=== PATIENT | female | born 1945 | race Caucasian/White ===

== ENCOUNTER 2020-05-16 07:25 | Day surgery (SDC) | payer MEDICARE, OTHER ==
[~2020-05-16] VITALS: Ht 154.9 cm; Wt 66.2 kg
[~2020-05-16 07:25] MED LIST: ALENDRONATE SOD70 MG PO; MEMANTINE HCL10 MG PO
--- NOTE | 2020-05-16 09:54 | NUR ---
05/16/20 0954 Ana Viera 0949- PT ARRIVES TO PACU ALERT. PT REPORTS NO PAIN OR NAUSEA. RESP EVEN AND UNLABORED. OXYGEN SAT HIGH 90'S TO 100% ON 3L VIA NC. 0954- OXYGEN TITRATED OFF.
--- NOTE | 2020-05-17 13:36 | PATH ---
[facility] [address] [facility] [address] [place], [place] [address] Signed SPECIMEN(S): A SPLENIC FLEXURE POLYP SPECIMEN(S): B CECAL POLYPS SPECIMEN(S): C HEPATIC FLEXURE POLYP SPECIMEN(S): D TRANSVERSE POLYP SPECIMEN(S): E SPLENIC FLEXURE POLYP SPECIMEN(S): F SIGMOID POLYP AT 25 CM SPECIMEN(S): G SIGMOID POLYP AT 20 CM SPECIMEN(S): H RECTAL POLYP AT 16 CM SPECIMEN(S): I RECTAL POLYP SPECIMEN SOURCE: A. SPLENIC FLEXURE POLYP B. CECAL POLYPS C. HEPATIC FLEXURE POLYP D. TRANSVERSE POLYP E. SPLENIC FLEXURE POLYP F. SIGMOID POLYP AT 25 CM G. SIGMOID POLYP AT 20 CM H. RECTAL POLYP AT 16 CM I. RECTAL POLYP CLINICAL HISTORY: Colon screening. Postop Diagnosis: Multiple colon polyps. MICROSCOPIC DESCRIPTION: Histologic sections of all submitted blocks are examined by light microscopy. These findings, together with the gross examination, support the pathologic diagnosis. FINAL PATHOLOGIC DIAGNOSIS: A. Splenic flexure polyp, biopsy: - Tubular adenoma (one fragment). B. Cecal polyps, biopsy: - Tubular adenoma (one fragment). C. Hepatic flexure polyp, biopsy: - Tubular adenoma (two fragments). D. Transverse polyp, biopsy: - Tubular adenoma (multiple fragments). E. Splenic flexure polyp, biopsy: - Tubular adenoma (one fragment). F. Sigmoid polyp at 25 cm, biopsy: - Tubular adenoma (multiple fragments). PATIENT NAME: DORCAS PUGH PATHOLOGY DATE OF : 43 REPORT #: [id number] PHYSICIAN: PAUL PATHOLOGY PCP: CHERIE MARCELO PA-C REPORT IS CONFIDENTIAL AND NOT TO BE RELEASED WITHOUT AUTHORIZATION [facility] [address] [place], [place] [address] Signed G. Sigmoid polyp at 20 cm, biopsy: - Tubular adenoma (one fragment). H. Rectal polyp at 16 cm, biopsy: - Tubular adenoma (one fragment). I. Rectal polyp, (low), biopsy: - Tubular adenoma (one fragment). JVR:[id number] GROSS DESCRIPTION: Nine specimens are received in nine containers, labeled "NJ." A. The specimen, labeled "NJ, 1," and designated on the requisition "splenic polyp," is received in formalin and consists of one merino soft tissue fragment that measures 0.3 cm in greatest dimension. The specimen is entirely submitted in cassette (A1). B. The specimen, labeled "NJ, 2," and designated on the requisition "cecal polyps x 2," is received in formalin and consists of two merino soft tissue fragments that measure 0.3 cm in greatest dimension. The specimen is entirely submitted in cassette (B1). C. The specimen, labeled "NJ, 3," and designated on the requisition "hepatic flexure polyp," is received in formalin and consists of two merino soft tissue fragments that measure 0.4 cm in greatest dimension. The specimen is entirely submitted in cassette (C1). D. The specimen, labeled "NJ, 4," and designated on the requisition "transverse polyps," is received in formalin and consists of multiple merino soft tissue fragments that measure 1.6 x 1.3 x 0.4 cm in aggregate. The specimen is entirely submitted in cassette (D1). E. The specimen, labeled "NJ, 5," and designated on the requisition "splenic colon polyp #2," is received in formalin and consists of two merino soft tissue fragments that measure 0.4 cm in greatest dimension. The specimen is entirely submitted in cassette (E1). F. The specimen, labeled "NJ, 6," and designated on the requisition "sigmoid polyp at 25 cm," is received in formalin and consists of two merino soft tissue fragments that measure 0.8 cm in greatest dimension. The larger polypoid specimen is inked black and bisected; the specimen is entirely submitted in cassette (F1). G. The specimen, labeled "NJ, 7," and designated on the requisition "sigmoid polyp at 20 cm," is received in formalin and consists of one merino soft tissue fragment that measures 0.6 cm in greatest dimension. The specimen is inked black, bisected, and entirely submitted in cassette (G1). PATIENT NAME: DORCAS PUGH PATHOLOGY DATE OF : 43 REPORT #: [id number] PHYSICIAN: PAUL MURRELL PCP: CHERIE MARCELO PA-C REPORT IS CONFIDENTIAL AND NOT TO BE RELEASED WITHOUT AUTHORIZATION [facility] [address] [place] [id number] Signed H. The specimen, labeled "NJ, 8," and designated on the requisition "rectal polyp at 16 cm," is received in formalin and consists of two merino soft tissue fragments that measure 0.3 cm in greatest dimension. The specimen is entirely submitted in cassette (H1). I. The specimen, labeled "NJ, 9," and designated on the requisition "rectal polyp (low)," is received in formalin and consists of one merino soft tissue fragment that measures 0.6 cm in greatest dimension. The specimen is inked black, bisected, and entirely submitted in cassette (I1). AT (under the direct supervision of a pathologist) The Gross Description was prepared using a voice recognition system. The report was reviewed for accuracy; however, sound-alike word errors, addition and/or deletions may occur. If there is any question about this report, please contact Client Services. PERFORMING LABORATORY: The technical component was performed by [facility], [address] [place] [address] (Cardiovascular Lab Director: Amber Cherry MD; CLIA# [id number]). Professional interpretation [place] [address] (Cardiovascular Lab Director: Christiano Garcia M.D.). Diagnostician: Christiano Garcia MD Pathologist Electronically Signed 05/17/2020 Copies: ~ PATIENT NAME: DORCAS PUGH PATHOLOGY DATE OF : 43 REPORT #: [id number] PHYSICIAN: PAUL MURRELL PCP: CHERIE MARCELO PA-C REPORT IS CONFIDENTIAL AND NOT TO BE RELEASED WITHOUT AUTHORIZATION
--- NOTE | 2020-05-18 12:08 | OR ---
[facility] [address] [place], [place] [address] Signed DATE OF OPERATION: 05/16/2020 SURGEON: Chao Morfin MD PREOPERATIVE DIAGNOSES: 1. Colon screening. 2. Dementia. POSTOPERATIVE DIAGNOSIS: Multiple polyps (9 excised) PROCEDURE: Total colonoscopy to cecum with hot snare polypectomy x4, mucosal lift, polypectomy x1, cold snare x1 and cold morcellation x3. ANESTHESIA: Intravenous sedation, fentanyl 100 mcg and Versed 5 mg. INDICATION: A 74-year-old white woman with dementia, the patient of Susan Warner and is uncertain if she has had colonoscopy in the past. She has some constipation and no other symptoms of bleeding, etc. Her family history is uncertain. She was advised and referred for colonoscopy with two no-show appointments in 2019. It is uncertain if she has had colonoscopy in the past. She is admitted at this time to undergo colonoscopy. She understands the risks of bleeding, infection, perforation. FINDINGS: The prep was excellent. Complete colonoscopy was undertaken to the cecum. She had multiple polyps as previously noted. All were excised with combination of techniques. We will recommend repeat colonoscopy in one year given the number of polyps. DESCRIPTION OF PROCEDURE: The patient was brought to the endoscopy suite and placed in lateral decubitus position, given intravenous sedation to the point of slurred speech and nystagmus. Digital rectal examination was normal. An Olympus video colonoscope was passed in the rectum and manipulated throughout the colon noting several polyps along the way. The 1st polyp excised was at the splenic flexure with cold morcellation technique given its position. The scope was ultimately advanced to the cecum. There were two small polyps, they were both excised with cold Electronically Signed By: CHAO MORFIN MD 05/18/20 1208 PATIENT NAME: DORCAS PUGH OPERATIVE REPORT DATE OF : 43 REPORT #: [id number] PHYSICIAN: CHAO MORFIN MD PCP: SUSAN WARNER PA-C REPORT IS CONFIDENTIAL AND NOT TO BE RELEASED WITHOUT AUTHORIZATION [facility] [address] [place], [place] [address] Signed morcellation technique. Withdrawal of the scope to the area of the hepatic flexure showed a somewhat larger sessile polyp, this was excised with cold snare technique. Further withdrawal to the proximal transverse colon showed a mucosal thickening and a flat polyp. Narrow band imaging confirmed this. Using mucosal lift technique with injection of Spot endoscopic tattoo material, the mucosa was lifted and using hot snare polypectomy technique, the lesion was completely excised. Photographs were taken of course in all these areas. Further withdrawal of scope showed another small polyp at the splenic flexure and was excised with cold technique. Withdrawal to the sigmoid showed two sessile polyps less than a cm in size, both excised with hot snare polypectomy technique and the proximal rectum at about 16 cm, cold morcellation of another small polyp and retroflexed view confirmed a somewhat larger less than a cm polyp, which was excised with hot snare polypectomy technique. All specimens were passed to pathology and appropriately labeled. The scope was removed and the patient was taken to the recovery room in good condition. CONCLUDING DIAGNOSIS: Multiple polyps. PLAN: Recommend a repeat colonoscopy in one year given number of polyps. She will return to the ongoing care of KANNAN Goins. Chao Morfin MD JM/MODL /[id number] cc: Susan Warner PA-C Copies: SUSAN WARNER PA-C ~ Electronically Signed By: CHAO MORFIN MD 05/18/20 1208 PATIENT NAME: DORCAS PUGH OPERATIVE REPORT DATE OF : 43 REPORT #: [id number] PHYSICIAN: CHAO MORFIN MD PCP: SUSAN WARNER PA-C REPORT IS CONFIDENTIAL AND NOT TO BE RELEASED WITHOUT AUTHORIZATION
== END 2020-05-16 10:30 | disposition home or self-care (01) ==
LOC: DS 07:25 → OPS 07:25 → DS 08:30 → OPS 08:30
PROVIDERS: ATTEND Surgery
PROC: 0DBL8ZX Excision of Transverse Colon, Via Natural or Artificial Opening Endoscopic, Diagnostic (ICD-10-PCS; 2020-05-16)
PROC: 0DBN8ZX Excision of Sigmoid Colon, Via Natural or Artificial Opening Endoscopic, Diagnostic (ICD-10-PCS; 2020-05-16)
PROC: 0DBP8ZX Excision of Rectum, Via Natural or Artificial Opening Endoscopic, Diagnostic (ICD-10-PCS; 2020-05-16)
PROC: 0DBN8ZZ Excision of Sigmoid Colon, Via Natural or Artificial Opening Endoscopic (ICD-10-PCS; 2020-05-16)
PROC: 0DBH8ZX Excision of Cecum, Via Natural or Artificial Opening Endoscopic, Diagnostic (ICD-10-PCS; principal; 2020-05-16 08:30)
DX: Z12.11 Encounter for screening for malignant neoplasm of colon (principal); D12.3 Benign neoplasm of transverse colon; D12.0 Benign neoplasm of cecum; D12.5 Benign neoplasm of sigmoid colon; D12.8 Benign neoplasm of rectum; G30.9 Alzheimer's disease, unspecified; F02.80 Dementia in other diseases classified elsewhere, unspecified severity, without behavioral disturbance, psychotic disturbance, mood disturbance, and anxiety; F17.210 Nicotine dependence, cigarettes, uncomplicated; Z88.6 Allergy status to analgesic agent; Z88.5 Allergy status to narcotic agent; Z79.899 Other long term (current) drug therapy
CPT/HCPCS: 99153; G0500; J2250; J3010; J7121

== ENCOUNTER 2021-10-23 00:06 | Emergency (ER) | payer MEDICARE, OTHER ==
[~2021-10-23] VITALS: Ht 154.9 cm; Wt 58.2 kg
[2021-10-23] MEDS ORDERED: EC-NAPROXEN500 MG PO (00:56)
[2021-10-23] MEDS ORDERED: DULOXETINE HCL20 MG PO (00:57)
[2021-10-23] MEDS ORDERED: CARAFATE1 GM PO (02:01)
== END 2021-10-23 02:21 | disposition home or self-care (01) ==
LOC: ED 00:06
DX: K29.70 Gastritis, unspecified, without bleeding (principal); G30.9 Alzheimer's disease, unspecified; F17.200 Nicotine dependence, unspecified, uncomplicated; Z88.5 Allergy status to narcotic agent; Z88.6 Allergy status to analgesic agent; Z79.899 Other long term (current) drug therapy
CPT/HCPCS: 36415; 74177; 80053; 81001; 83690; 85025; 96375; 99284-25; J2270; J2405; Q9967

== ENCOUNTER 2022-01-11 23:54 | Emergency (ER) | payer OTHER, MEDICARE ==
[~2022-01-11] VITALS: Ht 154.9 cm; Wt 58.5 kg
[~2022-01-11 23:54] MED LIST changes: +CARAFATE1 GM PO; +DULOXETINE HCL20 MG PO; +EC-NAPROXEN500 MG PO
--- OUTSIDE RECORDS SUMMARY | 2022-01-12 00:04 | XMS ---
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 - 2 Visits in 30 Days CARE PROVIDERS CHERIE MARCELO Physician Airline Radio Operator Current PHONE: [phone] Sammie has no Care Guidelines for this patient. E.Alejandro VISIT COUNT (12 MO.) 3 [facility] TOTAL 3 NOTE: Visits indicate total known visits. ED/UCC VISIT TRACKING (12 MO.) 01/11/2022 23:54 [facility] TYPE: Emergency COMPLAINT: - LEFT SHOULDER INJ 01/11/2022 19:51 [facility] TYPE: Emergency COMPLAINT: - LT ARM INJURY 10/23/2021 00:07 [facility] [place] TYPE: Emergency COMPLAINT: - ABD PAIN DIAGNOSES: - Gastritis, unspecified, without bleeding - Allergy status to narcotic agent - Epigastric pain - Nicotine dependence, unspecified, uncomplicated - Allergy status to analgesic agent - Alzheimer's disease, unspecified - Other watermelon inspector (current) drug therapy INPATIENT VISIT TRACKING (12 MO.) No inpatient visits to display in this time frame [id number]
[2022-01-12] MEDS ORDERED: OMEPRAZOLE20 MG PO (02:11)
== END 2022-01-12 02:50 | disposition home or self-care (01) ==
LOC: ED 23:54
DX: S20.212A Contusion of left front wall of thorax, initial encounter (principal); W01.10XA Fall on same level from slipping, tripping and stumbling with subsequent striking against unspecified object, initial encounter; F17.200 Nicotine dependence, unspecified, uncomplicated; Z88.8 Allergy status to other drugs, medicaments and biological substances; Z88.5 Allergy status to narcotic agent; Z79.899 Other long term (current) drug therapy
CPT/HCPCS: 71045; 73030; 99283-25

== ENCOUNTER 2022-10-16 20:08 | Emergency (ER) | payer MEDICARE, OTHER ==
[~2022-10-16] VITALS: Ht 154.9 cm; Wt 67.9 kg
[~2022-10-16 20:08] MED LIST changes: +OMEPRAZOLE20 MG PO
[2022-10-16] MEDS ORDERED: BUSPIRONE HCL7.5 MG PO (21:04)
[2022-10-16] MEDS ORDERED: TRAZODONE HCL50 MG PO (21:05)
[2022-10-16] MEDS ORDERED: BACTRIM DS TAB1 EACH PO (21:28)
== END 2022-10-16 21:48 | disposition home or self-care (01) ==
LOC: ED 20:08
DX: L03.114 Cellulitis of left upper limb (principal); F17.200 Nicotine dependence, unspecified, uncomplicated; Z88.8 Allergy status to other drugs, medicaments and biological substances; Z88.5 Allergy status to narcotic agent; Z79.899 Other long term (current) drug therapy
CPT/HCPCS: 36415; 85025; 99283; A9270

== ENCOUNTER 2022-11-25 15:12 | Emergency (ER) | payer MEDICARE, OTHER ==
[~2022-11-25] VITALS: Ht 154.9 cm; Wt 67.9 kg
[~2022-11-25 15:12] MED LIST changes: +BACTRIM DS TAB1 EACH PO; +BUSPIRONE HCL7.5 MG PO; +TRAZODONE HCL50 MG PO
[2022-11-25] MEDS ORDERED: ADULT LOW DOSE81 MG PO (16:23)
[2022-11-25 16:29] VITALS: BP 144/94
--- NOTE | 2022-11-25 16:44 | EKG ---
[facility] [address] [facility] [place] [address] Signed Normal sinus rhythm Left anterior fascicular block Cannot rule out Inferior infarct (masked by fascicular block?) , age undetermined Abnormal ECG No previous ECGs available Confirmed by DAVE EAST MD ([id number]) on 11/25/2022 4:43:40 PM Electronically Signed By: DAVE EAST MD 11/25/22 1644 PATIENT NAME: KEATONDORCAS MILTON Electrocardiogram DATE OF : 43 PHYSICIAN: DAVE EAST MD REPORT #: [id number] REPORT IS CONFIDENTIAL AND NOT TO BE RELEASED WITHOUT AUTHORIZATION
== END 2022-11-25 16:29 | disposition home or self-care (01) ==
LOC: ED 15:12
DX: R07.89 Other chest pain (principal); F17.200 Nicotine dependence, unspecified, uncomplicated; Z88.5 Allergy status to narcotic agent; Z88.6 Allergy status to analgesic agent; Z79.899 Other long term (current) drug therapy
CPT/HCPCS: 36415; 71045; 80053; 84484; 85025; 93005; 93010

== ENCOUNTER 2022-12-21 09:42 | Emergency (ER) | payer MEDICARE, OTHER ==
[~2022-12-21] VITALS: Ht 154.9 cm; Wt 67.4 kg
[~2022-12-21 09:42] MED LIST changes: +ADULT LOW DOSE81 MG PO; +BUSPIRONE HCL30 MG PO; +SEROQUEL50 MG PO; +TRAZODONE HCL100 MG PO
--- OUTSIDE RECORDS SUMMARY | 2022-12-21 09:49 | XMS ---
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 - Patient with suicidal and/or homicidal ideations eloped. - Patient eloped with IV in place. Details: PATIENT LWBS CRITERIA MET - [facility] - 2 Visits in 30 Days CARE PROVIDERS -, [place] Dentist: [employer] Consultant [facility] PHONE: [phone] CHERIE MARCELO Physician Die Lay Out Worker Current PHONE: [phone] Sammie has no Care Guidelines for this patient. EKristin VISIT COUNT (12 MO.) [address] [facility] TOTAL 7 NOTE: Visits indicate total known visits. ED/UCC VISIT TRACKING (12 MO.) 12/21/2022 09:42 [facility] TYPE: Emergency COMPLAINT: - ALTERED LOC 12/19/2022 20:09 [facility] TYPE: Emergency COMPLAINT: - ALTERED MENTAL STATUS DIAGNOSES: - Allergy status to analgesic agent - Allergy status to narcotic agent - senior living (current) use of aspirin - Nicotine dependence, unspecified, uncomplicated - Other skilled nursing (current) drug therapy - Restlessness and agitation - Transient alteration of awareness - Unspecified dementia, unspecified severity, with agitation 12/04/2022 18:52 [facility] TYPE: Emergency COMPLAINT: - HEAD INJURY DIAGNOSES: - Allergy status to analgesic agent - Allergy status to narcotic agent - Contusion of other part of head, initial encounter - Headache, unspecified - emt intermediate (current) use of aspirin - Nicotine dependence, unspecified, uncomplicated - Other skilled nursing (current) drug therapy - Striking against other object with subsequent fall, initial encounter - Unspecified dementia, unspecified severity, without behavioral disturbance, psychotic disturbance, mood disturbance, and anxiety 11/25/2022 15:13 [facility] TYPE: Emergency COMPLAINT: - CHEST PAIN DIAGNOSES: - Allergy status to analgesic agent - Allergy status to narcotic agent - Chest pain, unspecified - Nicotine dependence, unspecified, uncomplicated - Other chest pain - Other skilled nursing (current) drug therapy 10/16/2022 20:09 [facility] TYPE: Emergency COMPLAINT: - SKIN ISSUE DIAGNOSES: - Allergy status to narcotic agent - Allergy status to other drugs, medicaments and biological substances - Cellulitis of left upper limb - Nicotine dependence, unspecified, uncomplicated - Other watermaster (current) drug therapy 01/11/2022 23:54 [facility] TYPE: Emergency COMPLAINT: - LEFT SHOULDER INJ DIAGNOSES: - Allergy status to narcotic agent - Allergy status to other drugs, medicaments and biological substances - Contusion of left front wall of thorax, initial encounter - Fall on same level from slipping, tripping and stumbling with subsequent striking against unspecified object, initial encounter - Nicotine dependence, unspecified, uncomplicated - Other watermaster (current) drug therapy 01/11/2022 19:51 [facility] TYPE: Emergency COMPLAINT: - LT ARM INJURY INPATIENT VISIT TRACKING (12 MO.) No inpatient visits to display in this time frame [id number]
[2022-12-21 12:17] VITALS: BP 124/86
== END 2022-12-21 12:20 | disposition home or self-care (01) ==
LOC: ED 09:42
DX: T42.4X1A Poisoning by benzodiazepines, accidental (unintentional), initial encounter (principal); R40.0 Somnolence; G30.9 Alzheimer's disease, unspecified; F02.80 Dementia in other diseases classified elsewhere, unspecified severity, without behavioral disturbance, psychotic disturbance, mood disturbance, and anxiety; F17.200 Nicotine dependence, unspecified, uncomplicated; Z88.6 Allergy status to analgesic agent; Z88.5 Allergy status to narcotic agent; Z79.899 Other long term (current) drug therapy; Z79.82 Long term (current) use of aspirin
CPT/HCPCS: 99284

== ENCOUNTER 2023-01-25 16:06 | Emergency (ER) | payer MEDICARE, OTHER ==
[~2023-01-25] VITALS: Ht 154.9 cm; Wt 60.5 kg
--- OUTSIDE RECORDS SUMMARY | ~2023-01-25 | XMS | Continuity of Care Document ---
Demographics + + + | Address | [address] | | | [place] [address] | + + + | Preferred Language | Unknown | + + + | Marital Status | | + + + | Shinto Affiliation | Unknown | + + + | Race | White | + + + | Ethnic Group | Not or | + + + Author + + + | Author | [facility] | + + + | Organization | [facility] | + + + | Address | [address] [facility] | | | [place] [address] | + + + | Phone | | + + + Care Team Providers + + + + | Care Stress Engineer Name | Role | Phone | + + + + Unavailable | Unavailable | + + + + Unavailable | Unavailable | + + + + Unavailable | Unavailable | + + + + Unavailable | Unavailable | + + + + Unavailable | Unavailable | + + + + Allergies and Intolerances + + + + + | date | description | facility | type | + + + + + | (no date) | Urticaria | [facility] (unknown[facility] | | + + + + + | (no date) | Morphine | [facility] (unknown[facility] | | + + + + + | (no date) | Ibuprofen | [facility] (unknown) [facility] | | | [facility] | | + + + + + | (no date) | Ibuprofen | [facility] (unknown) | | | | [facility] | | + + + + + | (no date) | Morphine | [facility] (unknown) [facility] | [facility] | | + + + + + | (no date) | Morphine | [facility] (unknown) | | | [facility] | | + + + + + | (no date) | morphine | [facility] | (unknown) | + + + + + | (no date) | ibuprofen | [facility] | (unknown) | + + + + + | (no date) | Ibuprofen | [facility] | (unknown) | | | | Hospital | | + + + + + Encounters No information. Functional Status No information. Immunizations No information. Medications + + + + | date | description | facility | + + + + | 2022-10-16 00:00 | OMEPRAZOLE | [facility] | + + + + | 2022-11-25 00:00 | OMEPRAZOLE | [facility] | + + + + | 2022-12-04 00:00 | OMEPRAZOLE | [facility] | + + + + | 2022-12-19 00:00 | OMEPRAZOLE | [facility] | + + + + | 2022-12-21 00:00 | OMEPRAZOLE | [facility] | + + + + | 2023-01-13 00:00 | OMEPRAZOLE | [facility] | + + + + | 2023-01-16 00:00 | OMEPRAZOLE | [facility] | + + + + | 2023-01-22 00:00 | OMEPRAZOLE | [facility] | + + + + | 2022-11-25 00:00 | ASPIRIN | [facility] | + + + + | 2022-11-25 00:00 | ASPIRIN | [facility] | + + + + | 2023-01-16 00:00 | QUETIAPINE FUMARATE | [facility] | + + + + | 2023-01-21 00:00 | QUETIAPINE FUMARATE | [facility] | + + + + | 2023-01-22 00:00 | QUETIAPINE FUMARATE | [facility] | + + + + | 2023-01-21 00:00 | ACETAMINOPHEN | [facility] | + + + + | 2022-10-16 00:00 | DULOXETINE HCL | [facility] | + + + + | 2022-11-25 00:00 | DULOXETINE HCL | [facility] | + + + + | 2022-12-04 00:00 | DULOXETINE HCL | [facility] | + + + + | 2022-12-19 00:00 | DULOXETINE HCL | [facility] | + + + + | 2022-12-19 00:00 | QUETIAPINE FUMARATE | [facility] | + + + + | 2022-10-16 00:00 | | [facility] | | | SULFAMETHOXAZOLE/TRIMETHOPR | | | | IM DS | | + + + + | 2022-10-16 00:00 | | [facility] | | | SULFAMETHOXAZOLE/TRIMETHOPR | | | | IM DS | | + + + + | 2022-10-16 00:00 | | [facility] | | | SULFAMETHOXAZOLE/TRIMETHOPR | | | | IM DS | | + + + + | 2022-12-19 00:00 | TRAZODONE HCL | [facility] | + + + + | 2022-12-21 00:00 | TRAZODONE HCL | [facility] | + + + + | 2023-01-13 00:00 | TRAZODONE HCL | [facility] | + + + + | 2023-01-16 00:00 | TRAZODONE HCL | [facility] | + + + + | 2023-01-21 00:00 | TRAZODONE HCL | [facility] | + + + + | 2023-01-22 00:00 | TRAZODONE HCL | [facility] | + + + + | 2022-10-16 00:00 | TRAZODONE HCL | [facility] | + + + + | 2022-11-25 00:00 | TRAZODONE HCL | [facility] | + + + + | 2022-12-04 00:00 | TRAZODONE HCL | [facility] | + + + + | 2022-12-19 00:00 | TRAZODONE HCL | [facility] | + + + + | 2022-12-21 00:00 | TRAZODONE HCL | [facility] | + + + + | 2023-01-13 00:00 | TRAZODONE HCL | [facility] | + + + + | 2023-01-16 00:00 | TRAZODONE HCL | [facility] | + + + + | 2023-01-22 00:00 | TRAZODONE HCL | [facility] | + + + + | 2022-12-19 00:00 | BUSPIRONE HCL | [facility] | + + + + | 2022-12-21 00:00 | BUSPIRONE HCL | [facility] | + + + + | 2023-01-13 00:00 | BUSPIRONE HCL | [facility] | + + + + | 2023-01-16 00:00 | BUSPIRONE HCL | [facility] | + + + + | 2023-01-22 00:00 | BUSPIRONE HCL | [facility] | + + + + | 2022-10-16 00:00 | BUSPIRONE HCL | [facility] | + + + + | 2022-11-25 00:00 | BUSPIRONE HCL | [facility] | + + + + | 2022-12-04 00:00 | BUSPIRONE HCL | [facility] | + + + + | 2022-12-19 00:00 | BUSPIRONE HCL | [facility] | + + + + | 2022-12-21 00:00 | BUSPIRONE HCL | [facility] | + + + + | 2023-01-13 00:00 | BUSPIRONE HCL | [facility] | + + + + | 2023-01-16 00:00 | BUSPIRONE HCL | [facility] | + + + + | 2023-01-22 00:00 | BUSPIRONE HCL | [facility] | + + + + | 2023-01-22 00:00 | hydrOXYzine HCL | [facility] | + + + + | 2022-10-16 00:00 | MEMANTINE HCL | [facility] | + + + + | 2022-11-25 00:00 | MEMANTINE HCL | [facility] | + + + + | 2022-12-04 00:00 | MEMANTINE HCL | [facility] | + + + + | 2022-12-19 00:00 | MEMANTINE HCL | [facility] | + + + + Problems + + + + | date | description | facility | + + + + | 2021-10-23 00:00 | Gastritis | [facility] | + + + + | 2021-10-23 00:00 | Gastritis | [facility] | + + + + | 2021-10-23 00:00 | Gastritis | [facility] | + + + + | 2022-01-11 00:00 | Patient left without being | [facility] | | | seen | | + + + + | 2022-01-11 00:00 | Patient left without being | [facility] | | | seen | | + + + + | 2022-01-11 00:00 | Patient left without being | [facility] | | | seen | | + + + + | 2022-01-12 00:00 | Contusion of chest wall | [facility] | + + + + | 2022-01-12 00:00 | Contusion of chest wall | [facility] | + + + + | 2022-01-12 00:00 | Contusion of chest wall | [facility] | + + + + | 2022-10-16 00:00 | Cellulitis | [facility] | + + + + | 2022-10-16 00:00 | Cellulitis | [facility] | + + + + | 2022-10-16 00:00 | Cellulitis | [facility] | + + + + | 2022-10-16 20:09 | NICOTINE DEPENDENCE, | [facility] | | | UNSPECIFIED, UNCOMPLICATED | | + + + + | 2022-10-16 20:09 | CELLULITIS OF LEFT UPPER | [facility] | | | LIMB | | + + + + | 2022-10-16 20:09 | 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) | [facility] | | | DRUG [facility]AP[facility] | | + + + + | 2022-10-16 20:09 | ALLERGY STATUS TO NARCOTIC | [facility] | | | AGENT STATUS | | + + + + | 2022-10-16 20:09 | ALLERGY STATUS TO OTH | [facility] | | | DRUG/MEDS/BIOL SUBST STATUS | | | | | | + + + + | 2022-11-25 00:00 | Nonspecific chest pain | [facility] | + + + + | 2022-11-25 00:00 | Nonspecific chest pain | [facility] | + + + + | 2022-11-25 00:00 | Nonspecific chest pain | [facility] | + + + + | 2022-11-25 15:13 | NICOTINE DEPENDENCE, | [facility] | | | UNSPECIFIED, UNCOMPLICATED | | + + + + | 2022-11-25 15:13 | OTHER CHEST PAIN | [facility] | + + + + | 2022-11-25 15:13 | CHEST PAIN, UNSPECIFIED | [facility] | + + + + | 2022-11-25 15:13 | OTHER INTERMEDIATE (CURRENT) | [facility] | | | [facility]UG [facility]AP[facility] | | + + + + | 2022-11-25 15:13 | ALLERGY STATUS TO NARCOTIC | [facility] | | | AGENT STATUS | | + + + + | 2022-11-25 15:13 | ALLERGY STATUS TO | [facility] | | | ANALGESIC AGENT STATUS | | + + + + | 2022-12-04 00:00 | Dementia | [facility] | + + + + | 2022-12-04 00:00 | Dementia | [facility] | + + + + | 2022-12-04 18:52 | UNSP DEMENTIA, UNSP | [facility] | | | SEVERITY, WITHOUT | | | | BEH/PSYCH/MO | | + + + + | 2022-12-04 18:52 | NICOTINE DEPENDENCE, | [facility] | | | UNSPECIFIED, UNCOMPLICATED | | + + + + | 2022-12-04 18:52 | CONTUSION OF OTHER PART OF | [facility] | | | HEAD, INITIAL ENCOUNTER | | + + + + | 2022-12-04 18:52 | STRIKING AGAINST OTH | [facility] | | | OBJECT W SUBSEQUENT FALL, | | | | INI | | + + + + | 2022-12-04 18:52 | INTERMEDIATE (CURRENT) USE OF | [facility] | | | ASPIRIN | | + + + + | 2022-12-04 18:52 | 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) | [facility] | | | [facility] | | + + + + | 2022-12-04 18:52 | ALLERGY STATUS TO NARCOTIC | [facility] | | | AGENT STATUS | | + + + + | 2022-12-04 18:52 | ALLERGY STATUS TO | [facility] | | | ANALGESIC AGENT STATUS | | + + + + | 2022-12-19 00:00 | Agitation due to dementia | [facility] | + + + + | 2022-12-19 00:00 | Agitation due to dementia | [facility] | + + + + | 2022-12-19 20:09 | UNSPECIFIED DEMENTIA, | [facility] | | | UNSPECIFIED SEVERITY, WITH | | | | A | | + + + + | 2022-12-19 20:09 | NICOTINE DEPENDENCE, | [facility] | | | UNSPECIFIED, UNCOMPLICATED | | + + + + | 2022-12-19 20:09 | TRANSIENT ALTERATION OF | [facility] | | | AWARENESS | | + + + + | 2022-12-19 20:09 | RESTLESSNESS AND AGITATION | [facility] | | | | | + + + + | 2022-12-19 20:09 | INTERMEDIATE (CURRENT) USE OF | [facility] | | | ASPIRIN | | + + + + | 2022-12-19 20:09 | 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) | [facility] | | [facility] | | + + + + | 2022-12-19 20:09 | ALLERGY STATUS TO NARCOTIC | [facility] | | | AGENT STATUS | | + + + + | 2022-12-19 20:09 | ALLERGY STATUS TO | [facility] | | | ANALGESIC AGENT STATUS | | + + + + | 2022-12-21 00:00 | Sedated due to medication | [facility] | + + + + | 2022-12-21 00:00 | Sedated due to medication | [facility] | + + + + | 2022-12-21 09:42 | DEM IN OT DIS CLASSD | [facility] | | | ELSWHR,UNSP SEV,W/O | | | | BEH/PSYC | | + + + + | 2022-12-21 09:42 | NICOTINE DEPENDENCE, | [facility] | | | UNSPECIFIED, UNCOMPLICATED | | + + + + | 2022-12-21 09:42 | ALZHEIMER'S DISEASE, | [facility] | | | UNSPECIFIED | | + + + + | 2022-12-21 09:42 | SOMNOLENCE | [facility] | + + + + | 2022-12-21 09:42 | POISONING BY | [facility] | | | BENZODIAZEPINES, | | | | ACCIDENTAL, INIT | | + + + + | 2022-12-21 09:42 | INTERMEDIATE (CURRENT) USE OF | [facility] | | | ASPIRIN | | + + + + | 2022-12-21 09:42 | OTHER INTERMEDIATE (CURRENT) | [facility] | | | [facility] | | + + + + | 2022-12-21 09:42 | ALLERGY STATUS TO NARCOTIC | [facility] | | | AGENT STATUS | | + + + + | 2022-12-21 09:42 | ALLERGY STATUS TO | [facility] | | | ANALGESIC AGENT STATUS | | + + + + | 2023-01-13 19:39 | UNSP DEMENTIA, UNSP | [facility] | | | SEVERITY, WITHOUT | | | | BEH/PSYCH/MO | | + + + + | 2023-01-13 19:39 | NICOTINE DEPENDENCE, | [facility] | | | UNSPECIFIED, UNCOMPLICATED | | + + + + | 2023-01-13 19:39 | LACERATION WITHOUT FOREIGN | [facility] | | | BODY OF LEFT ELBOW, INIT | | | | ENCNTR | | + + + + | 2023-01-13 19:39 | LACERATION WITHOUT FOREIGN | [facility] | | | BODY OF LEFT FOREARM, I | | + + + + | 2023-01-13 19:39 | INTERMEDIATE (CURRENT) USE OF | [facility] | | | ASPIRIN | | + + + + | 2023-01-13 19:39 | OTHER INTERMEDIATE (CURRENT) | [facility] | | | DRUG TH[facility]APY | | + + + + | 2023-01-13 19:39 | ALLERGY STATUS TO NARCOTIC | [facility] | | | AGENT STATUS | | + + + + | 2023-01-13 19:39 | ALLERGY STATUS TO | [facility] | | | ANALGESIC AGENT STATUS | | + + + + | 2023-01-16 00:00 | Altered mental status | [facility] | + + + + | 2023-01-16 00:00 | Laceration of nose | [facility] | + + + + | 2023-01-16 00:00 | Laceration of nose | [facility] | + + + + | 2023-01-16 04:59 | DEM IN [facility] DIS CLASSD | [facility] | | | ELSWHR,UNSP SEV,W/O | | | | BEH/PSYC | | + + + + | 2023-01-16 04:59 | NICOTINE DEPENDENCE, | [facility] | | | UNSPECIFIED, UNCOMPLICATED | | + + + + | 2023-01-16 04:59 | ALZHEIMER'S DISEASE, | [facility] | | | UNSPECIFIED | | + + + + | 2023-01-16 04:59 | LACERATION WITHOUT FOREIGN | [facility] | | | BODY OF NOSE, INITIAL | | | | ENCOUNTER | | + + + + | 2023-01-16 04:59 | FALL ON SAME LEVEL, | [facility] | | | UNSPECIFIED, INITIAL | | | | ENCOUNTER | | + + + + | 2023-01-16 04:59 | TELEVISION 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) USE OF | [facility] | | | ASPIRIN | | + + + + | 2023-01-16 04:59 | 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) | [facility] | | | DRUG THERAPY | | + + + + | 2023-01-16 04:59 | ALLERGY STATUS TO NARCOTIC | [facility] | | | AGENT STATUS | | + + + + | 2023-01-16 04:59 | ALLERGY STATUS TO | [facility] | | | ANALGESIC AGENT STATUS | | + + + + | 2023-01-17 13:46 | HYPOKALEMIA | [facility] | + + + + | 2023-01-17 13:46 | DEM IN [facility] DIS CLASSD | [facility] | | | ELSWHR, UNSP SEV, WITH OTH | | | | B | | + + + + | 2023-01-17 13:46 | ALZHEIMER'S DISEASE, | [facility] | | | UNSPECIFIED | | + + + + | 2023-01-17 13:46 | REPEATED FALLS | [facility] | + + + + | 2023-01-17 13:46 | DISORIENTATION, | [facility] | | | UNSPECIFIED | | + + + + | 2023-01-17 13:46 | FRACTURE OF NASAL BONES, | [facility] | | | INIT ENCNTR FOR CLOSED FR | | + + + + | 2023-01-17 13:46 | FRACTURE OF NASAL BONES, | [facility] | | | SUBS FOR FX W ROUTN HEAL | | + + + + | 2023-01-17 13:46 | CONTUSION OF EYEBALL AND | [facility] | | | ORBITAL TISSUES, UNSP EYE | | + + + + | 2023-01-17 13:46 | CONTUSION OF EYEBALL AND | [facility] | | | ORBITAL TISSUES, RIGHT EY | | + + + + | 2023-01-17 13:46 | CONTUSION OF EYEBALL AND | [facility] | | | ORBITAL TISSUES, LEFT EYE | | + + + + | 2023-01-17 13:46 | OTHER FALL ON SAME LEVEL, | [facility] | | | INITIAL ENCOUNTER | | + + + + | 2023-01-17 13:46 | UNSP PLACE IN UNSP | [facility] | | | NON-INSTITUT (PRIVATE) | | | | RESIDENC | | + + + + | 2023-01-17 13:46 | TELEVISION 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) USE OF | [facility] | | | ASPIRIN | | + + + + | 2023-01-17 13:46 | 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) | [facility] | | | DRUG THERAPY | | + + + + | 2023-01-17 13:46 | PERSONAL HISTORY OF | [facility] | | | NICOTINE DEPENDENCE | | + + + + | 2023-01-17 13:46 | ALLERGY STATUS TO NARCOTIC | [facility] | | | AGENT STATUS | | + + + + | 2023-01-17 13:46 | ALLERGY STATUS TO | [facility] | | | ANALGESIC AGENT STATUS | | + + + + | 2023-01-17 13:46 | ALLERGY STATUS TO OTH | [facility] | | | DRUG/MEDS/BIOL SUBST STATUS | | | | | | + + + + | 2023-01-17 13:46 | HISTORY OF FALLING | [facility] | + + + + | 2023-01-17 13:46 | OTHER SPECIFIED | [facility] | | | POSTPROCEDURAL STATES | | + + + + Procedures No information. Results/Labs +--------+--------+ + +---------+--------+ + | test | date | author | facility | value | unit | | | | | | | | | interpreta | | | | | | | | tion | +--------+--------+ + +---------+--------+ + + + | Result panel 1 | + + + + + + +---------+ + + | (unknown) | (no date) | (unknown) | [facility] | (no | (units | (unknown) | | | [facility] value) | unknown) | [facility] | | | | + + + + +---------+ + + + + | Result panel 2 | + + + + + + +---------+ + + | (unknown) | (no date) | (unknown) | [facility] | (no | (units | (unknown) | | | | [facility] | value) | unknown) | | | | [facility] | | | | + + + + +---------+ + + + + | Result panel 3 | + + + + + + +---------+ + + | (unknown) | (no date) | (unknown) | [facility] | (no | (units | (unknown) | | | | [facility] | value) | unknown) | | | | | [facility] | | | | + + + + +---------+ + + + + | Result panel 4 | + + + + + + +---------+ + + | (unknown) | (no date) | (unknown) | [facility] | (no | (units | (unknown) | | | | [facility] | value) | unknown) | | | | | [facility] | | | | + + + + +---------+ + + + + | Result panel 5 | + + + + + + +---------+ + + | (unknown) | (no date) | (unknown) | [facility] | (no | (units | (unknown) | | | | [facility] | value) | unknown) | | | | | [facility] | | | | + + + + +---------+ + + + + | Result panel 6 | + + + + + + +---------+ + + | (unknown) | (no date) | (unknown) | [facility] | (no | (units | (unknown) | | | | [facility] | value) | unknown) | | | | | [facility] | | | | + + + + +---------+ + + + + | Result panel 7 | + + + + + + +---------+ + + | (unknown) | (no date) | (unknown) | [facility] | (no | (units | (unknown) | | | | [facility] | value) | unknown) | | | | | [facility] | | | | + + + + +---------+ + + + + | Result panel 8 | + + + + + + +---------+ + + | (unknown) | (no date) | (unknown) | [facility] | (no | (units | (unknown) | | | | [facility] | value) | unknown) | | | | | [facility] | | | | + + + + +---------+ + + + + | Result panel 9 | + + + + + + +---------+ + + | (unknown) | (no date) | (unknown) | [facility] | (no | (units | (unknown) | | | | [facility] | value) | unknown) | | | | | [facility] | | | | + + + + +---------+ + + + + | Result panel 10 | + + + + + + +---------+ + + | (unknown) | (no date) | (unknown) | [facility] | (no | (units | (unknown) | | | | [facility] | value) | unknown) | | | | | [facility] | | | | + + + + +---------+ + + + + | Result panel 11 | + + + + + + +---------+ + + | (unknown) | (no date) | (unknown) | [facility] | (no | (units | (unknown) | | | | [facility] | value) | unknown) | | | | | [facility] | | | | + + + + +---------+ + + + + | Result panel 12 | + + + + + + +---------+ + + | (unknown) | (no date) | (unknown) | [facility] | (no | (units | (unknown) | | | | [facility] | value) | unknown) | | | | | [facility] | | | | + + + + +---------+ + + + + | Result panel 13 | + + + + + + +---------+ + + | (unknown) | (no date) | (unknown) | [facility] | (no | (units | (unknown) | | | | [facility] | value) | unknown) | | | | | [facility] | | | | + + + + +---------+ + + + + | Result panel 14 | + + + + + + +---------+ + + | (unknown) | (no date) | (unknown) | [facility] | (no | (units | (unknown) | | | | [facility] | value) | unknown) | | | | | [facility] | | | | + + + + +---------+ + + + + | Result panel 15 | + + + + + + +---------+ + + | (unknown) | (no date) | (unknown) | [facility] | (no | (units | (unknown) | | | | [facility] | value) | unknown) | | | | | [facility] | | | | + + + + +---------+ + + + + | Result panel 16 | + + + + + + +---------+ + + | (unknown) | (no date) | (unknown) | [facility] | (no | (units | (unknown) | | | | [facility] | value) | unknown) | | | | | [facility] | | | | + + + + +---------+ + + + + | Result panel 17 | + + + + + + +---------+ + + | (unknown) | (no date) | (unknown) | [facility] | (no | (units | (unknown) | | | | [facility] | value) | unknown) | | | | | [facility] | | | | + + + + +---------+ + + + + | Result panel 18 | + + + + + + +---------+ + + | (unknown) | (no date) | (unknown) | [facility] | (no | (units | (unknown) | | | | [facility] | value) | unknown) | | | | [facility] | | | | + + + + +---------+ + + + + | Result panel 19 | + + + + + + +---------+ + + | (unknown) | (no date) | (unknown) | [facility] | (no | (units | (unknown) | | | | [facility] | value) | unknown) | | | | | [facility] | | | | + + + + +---------+ + + + + | Result panel 20 | + + + + + + +---------+ + + | (unknown) | (no date) | (unknown) | [facility] | (no | (units | (unknown) | | | | [facility] | value) | [facility]) | | | | [facility] | | | | + + + + +---------+ + + + + | Result panel 21 | + + + + + + +---------+ + + | (unknown) | (no date) | (unknown) | [facility] | (no | (units | (unknown) | | | | [facility] | value) | unknown) | | | | [facility] | | | | + + + + +---------+ + + + + | Result panel 22 | + + + + + + +---------+ + + | (unknown) | (no date) | (unknown) | [facility] | (no | (units | (unknown) | | | | [facility] | value) | unknown) | | | | [facility] | | | | + + + + +---------+ + + + + | Result panel 23 | + + + + + + +---------+ + + | (unknown) | (no date) | (unknown) | [facility] | (no | (units | (unknown) | | | | [facility] | value) | unknown) | | | | [facility] | | | | + + + + +---------+ + + + + | Result panel 24 | + + + + + + +---------+ + + | (unknown) | (no date) | (unknown) | [facility] | (no | (units | (unknown) | | | | [facility] | value) | [facility]) | | | | [facility] | | | | + + + + +---------+ + + + + | Result panel 25 | + + + + + + +---------+ + + | (unknown) | (no date) | (unknown) | [facility] | (no | (units | (unknown) | | | | [facility] value) | [facility]) | | | | [facility] | | | | + + + + +---------+ + + + + | Result panel 26 | + + + + + + +---------+ + + | (unknown) | (no date) | (unknown) | [facility] | (no | (units | (unknown) | | | | [facility] value) | [facility]) | | | | [facility] | | | | + + + + +---------+ + + + + | Result panel 27 | + + + + + + +---------+ + + | (unknown) | (no date) | (unknown) | [facility] | (no | (units | (unknown) | | | | [facility] value) | [facility]) | | | | [facility] | | | | + + + + +---------+ + + + + | Result panel 28 | + + + + + + +---------+ + + | (unknown) | (no date) | (unknown) | [facility] | (no | (units | (unknown) | | | | [facility] value) | [facility]) | | | | [facility] | | | | + + + + +---------+ + + + + | Result panel 29 | + + + + + + +---------+ + + | (unknown) | (no date) | (unknown) | [facility] | (no | (units | (unknown) | | | | [facility] value) | unknown) | | | | [facility] | | | | + + + + +---------+ + + + + | Result panel 30 | + + + + + + +---------+ + + | (unknown) | (no date) | (unknown) | [facility] | (no | (units | (unknown) | | | | [facility] value) | unknown) | | | | [facility] | | | | + + + + +---------+ + + + + | Result panel 31 | + + + + + + +---------+ + + | (unknown) | (no date) | (unknown) | [facility] | (no | (units | (unknown) | | | | | [facility] | value) | unknown) | | | | | | [facility] | | | | + + + + +---------+ + + + + | Result panel 32 | + + + + + + +---------+ + + | (unknown) | (no date) | (unknown) | [facility] | (no | (units | (unknown) | | | | | [facility] | value) | unknown) | | | | | [facility] | | | | + + + + +---------+ + + + + | Result panel 33 | + + + + + + +---------+ + + | (unknown) | (no date) | (unknown) | [facility] | (no | (units | (unknown) | | | | | [facility] | value) | unknown) | | | | | [facility] | | | | + + + + +---------+ + + + + | Result panel 34 | + + + + + + +---------+ + + | (unknown) | (no date) | (unknown) | [facility] | (no | (units | (unknown) | | | | | [facility] | value) | unknown) | | | | | [facility] | | | | + + + + +---------+ + + + + | Result panel 35 | + + + + + + +---------+ + + | (unknown) | (no date) | (unknown) | [facility] | (no | (units | (unknown) | | | | | [facility] | value) | unknown) | | | | | [facility] | | | | + + + + +---------+ + + + + | Result panel 36 | + + + + + + +---------+ + + | (unknown) | (no date) | (unknown) | [facility] | (no | (units | (unknown) | | | | | [facility] | value) | unknown) | | | | | | [facility] | | | | + + + + +---------+ + + + + | Result panel 37 | + + + + + + +---------+ + + | (unknown) | (no date) | (unknown) | [facility] | (no | (units | (unknown) | | | | | [facility] | value) | unknown) | | | | | | [facility] | | | | + + + + +---------+ + + + + | Result panel 38 | + + + + + + +---------+ + + | (unknown) | (no date) | (unknown) | [facility] | (no | (units | (unknown) | | | | | [facility] | value) | unknown) | | | | | | [facility] | | | | + + + + +---------+ + + + + | Result panel 39 | + + + + + + +---------+ + + | (unknown) | (no date) | (unknown) | [facility] | (no | (units | (unknown) | | | | | [facility] | value) | unknown) | | | | | | [facility] | | | | + + + + +---------+ + + + + | Result panel 40 | + + + + + + +---------+ + + | (unknown) | (no date) | (unknown) | [facility] | (no | (units | (unknown) | | | | | [facility] | value) | unknown) | | | | | | [facility] | | | | + + + + +---------+ + + + + | Result panel 41 | + + + + + + +---------+ + + | (unknown) | (no date) | (unknown) | [facility] | (no | (units | (unknown) | | | | | [facility] | value) | unknown) | | | | | [facility] | | | | + + + + +---------+ + + + + | Result panel 42 | + + + + + + +---------+ + + | (unknown) | (no date) | (unknown) | [facility] | (no | (units | (unknown) | | | | | [facility] | value) | unknown) | | | | | [facility] | | | | + + + + +---------+ + + + + | Result panel 43 | + + + + + + +---------+ + + | (unknown) | (no date) | (unknown) | [facility] | (no | (units | (unknown) | | | | | [facility] | value) | unknown) | | | | | | [facility] | | | | + + + + +---------+ + + + + | Result panel 44 | + + + + + + +---------+ + + | (unknown) | (no date) | (unknown) | [facility] | (no | (units | (unknown) | | | | | [facility] | value) | unknown) | | | | | | [facility] | | | | + + + + +---------+ + + + + | Result panel 45 | + + + + + + +---------+ + + | (unknown) | (no date) | (unknown) | [facility] | (no | (units | (unknown) | | | | | [facility] | value) | unknown) | | | [facility] | | | | + + + + +---------+ + + + + | Result panel 46 | + + + + + + +---------+ + + | (unknown) | (no date) | (unknown) | [facility] | (no | (units | (unknown) | | | | [facility] | value) | unknown) | | | | | [facility] | | | | + + + + +---------+ + + + + | Result panel 47 | + + + + + + +---------+ + + | (unknown) | (no date) | (unknown) | [facility] | (no | (units | (unknown) | | | | [facility] | value) | unknown) | | | | | [facility] | | | | + + + + +---------+ + + + + | Result panel 48 | + + + + + + +---------+ + + | (unknown) | (no date) | (unknown) | [facility] | (no | (units | (unknown) | | | | [facility] | value) | unknown) | | | | | [facility] | | | | + + + + +---------+ + + + + | Result panel 49 | + + + + + + +---------+ + + | (unknown) | (no date) | (unknown) | [facility] | (no | (units | (unknown) | | | | [facility] | value) | unknown) | | | | | [facility] | | | | + + + + +---------+ + + + + | Result panel 50 | + + + + + + +---------+ + + | (unknown) | (no date) | (unknown) | [facility] | (no | (units | (unknown) | | | | [facility] | value) | unknown) | | | | | [facility] | | | | + + + + +---------+ + + + + | Result panel 51 | + + + + + + +---------+ + + | (unknown) | (no date) | (unknown) | [facility] | (no | (units | (unknown) | | | | [facility] | value) | unknown) | | | | | [facility] | | | | + + + + +---------+ + + + + | Result panel 52 | + + + + + + +---------+ + + | (unknown) | (no date) | (unknown) | [facility] | (no | (units | (unknown) | | | | [facility] | value) | unknown) | | | | | [facility] | | | | + + + + +---------+ + + + + | Result panel 53 | + + + + + + +---------+ + + | (unknown) | (no date) | (unknown) | [facility] | (no | (units | (unknown) | | | | [facility] | value) | unknown) | | | | | [facility] | | | | + + + + +---------+ + + + + | Result panel 54 | + + + + + + +---------+ + + | (unknown) | (no date) | (unknown) | [facility] | (no | (units | (unknown) | | | | [facility] | value) | unknown) | | | | | [facility] | | | | + + + + +---------+ + + + + | Result panel 55 | + + + + + + +---------+ + + | (unknown) | (no date) | (unknown) | [facility] | (no | (units | (unknown) | | | | [facility] | value) | unknown) | | | | | [facility] | | | | + + + + +---------+ + + + + | Result panel 56 | + + + + + + +---------+ + + | (unknown) | (no date) | (unknown) | [facility] | (no | (units | (unknown) | | | | [facility] | value) | unknown) | | | | | [facility] | | | | + + + + +---------+ + + + + | Result panel 57 | + + + + + + +---------+ + + | (unknown) | (no date) | (unknown) | [facility] | (no | (units | (unknown) | | | | [facility] | value) | unknown) | | | | | [facility] | | | | + + + + +---------+ + + + + | Result panel 58 | + + + + + + +---------+ + + | (unknown) | (no date) | (unknown) | [facility] | (no | (units | (unknown) | | | | [facility] | value) | unknown) | | | | | [facility] | | | | + + + + +---------+ + + + + | Result panel 59 | + + + + + + +---------+ + + | (unknown) | (no date) | (unknown) | [facility] | (no | (units | (unknown) | | | | [facility] | value) | unknown) | | | | | [facility] | | | | + + + + +---------+ + + + + | Result panel 60 | + + + + + + +---------+ + + | (unknown) | (no date) | (unknown) | [facility] | (no | (units | (unknown) | | | | [facility] | value) | unknown) | | | | | [facility] | | | | + + + + +---------+ + + + + | Result panel 61 | + + + + + + +---------+ + + | (unknown) | (no date) | (unknown) | [facility] | (no | (units | (unknown) | | | | | [facility] | value) | unknown) | | | | | [facility] | | | | + + + + +---------+ + + + + | Result panel 62 | + + + + + + +---------+ + + | (unknown) | (no date) | (unknown) | [facility] | (no | (units | (unknown) | | | | | [facility] | value) | unknown) | | | | | [facility] | | | | + + + + +---------+ + + + + | Result panel 63 | + + + + + + +---------+ + + | (unknown) | (no date) | (unknown) | [facility] | (no | (units | (unknown) | | | | | [facility] | value) | unknown) | | | | | [facility] | | | | + + + + +---------+ + + + + | Result panel 64 | + + + + + + +---------+ + + | (unknown) | (no date) | (unknown) | [facility] | (no | (units | (unknown) | | | | [facility] | value) | unknown) | | | | | [facility] | | | | + + + + +---------+ + + + + | Result panel 65 | + + + + + + +---------+ + + | (unknown) | (no date) | (unknown) | [facility] | (no | (units | (unknown) | | | | | [facility] | value) | unknown) | | | | | [facility] | | | | + + + + +---------+ + + + + | Result panel 66 | + + + + + + +---------+ + + | (unknown) | (no date) | (unknown) | [facility] | (no | (units | (unknown) | | | | [facility] | value) | unknown) | | | | | [facility] | | | | + + + + +---------+ + + + + | Result panel 67 | + + + + + + +---------+ + + | (unknown) | (no date) | (unknown) | [facility] | (no | (units | (unknown) | | | | [facility] | value) | unknown) | | | | | [facility] | | | | + + + + +---------+ + + + + | Result panel 68 | + + + + + + +---------+ + + | (unknown) | (no date) | (unknown) | [facility] | (no | (units | (unknown) | | | | [facility] | value) | unknown) | | | | | [facility] | | | | + + + + +---------+ + + + + | Result panel 69 | + + + + + + +---------+ + + | (unknown) | (no date) | (unknown) | [facility] | (no | (units | (unknown) | | | | | [facility] | value) | unknown) | | | | | [facility] | | | | + + + + +---------+ + + + + | Result panel 70 | + + + + + + +---------+ + + | (unknown) | (no date) | (unknown) | [facility] | (no | (units | (unknown) | | | | [facility] | value) | unknown) | | | | | [facility] | | | | + + + + +---------+ + + + + | Result panel 71 | + + + + + + +---------+ + + | (unknown) | (no date) | (unknown) | [facility] | (no | (units | (unknown) | | | | [facility] | value) | unknown) | | | | | [facility] | | | | + + + + +---------+ + + + + | Result panel 72 | + + + + + + +---------+ + + | (unknown) | (no date) | (unknown) | [facility] | (no | (units | (unknown) | | | | [facility] | value) | unknown) | | | | | [facility] | | | | + + + + +---------+ + + + + | Result panel 73 | + + + + + + +---------+ + + | (unknown) | (no date) | (unknown) | [facility] | (no | (units | (unknown) | | | | [facility] | value) | unknown) | | | | | [facility] | | | | + + + + +---------+ + + + + | Result panel 74 | + + + + + + +---------+ + + | (unknown) | (no date) | (unknown) | [facility] | (no | (units | (unknown) | | | | [facility] | value) | unknown) | | | | | [facility] | | | | + + + + +---------+ + + + + | Result panel 75 | + + + + + + +---------+ + + | (unknown) | (no date) | (unknown) | [facility] | (no | (units | (unknown) | | | | [facility] | value) | unknown) | | | | | [facility] | | | | + + + + +---------+ + + + + | Result panel 76 | + + + + + + +---------+ + + | (unknown) | (no date) | (unknown) | [facility] | (no | (units | (unknown) | | | | [facility] | value) | unknown) | | | | | [facility] | | | | + + + + +---------+ + + + + | Result panel 77 | + + + + + + +---------+ + + | (unknown) | (no date) | (unknown) | [facility] | (no | (units | (unknown) | | | | [facility] | value) | unknown) | | | | | [facility] | | | | + + + + +---------+ + + + + | Result panel 78 | + + + + + + +---------+ + + | (unknown) | (no date) | (unknown) | [facility] | (no | (units | (unknown) | | | | [facility] | value) | unknown) | | | | | [facility] | | | | + + + + +---------+ + + + + | Result panel 79 | + + + + + + +---------+ + + | (unknown) | (no date) | (unknown) | [facility] | (no | (units | (unknown) | | | | | [facility] | value) | unknown) | | | | | [facility] | | | | + + + + +---------+ + + + + | Result panel 80 | + + + + + + +---------+ + + | (unknown) | (no date) | (unknown) | [facility] | (no | (units | (unknown) | | | | | [facility] | value) | unknown) | | | | | [facility] | | | | + + + + +---------+ + + + + | Result panel 81 | + + + + + + +---------+ + + | (unknown) | (no date) | (unknown) | [facility] | (no | (units | (unknown) | | | | | [facility] | value) | unknown) | | | | | [facility] | | | | + + + + +---------+ + + + + | Result panel 82 | + + + + + + +---------+ + + | (unknown) | (no date) | (unknown) | [facility] | (no | (units | (unknown) | | | | | [facility] | value) | unknown) | | | | | [facility] | | | | + + + + +---------+ + + + + | Result panel 83 | + + + + + + +---------+ + + | (unknown) | (no date) | (unknown) | [facility] | (no | (units | (unknown) | | | | | [facility] | value) | unknown) | | | | | [facility] | | | | + + + + +---------+ + + + + | Result panel 84 | + + + + + + +---------+ + + | (unknown) | (no date) | (unknown) | [facility] | (no | (units | (unknown) | | | | [facility] | value) | unknown) | | | | | [facility] | | | | + + + + +---------+ + + + + | Result panel 85 | + + + + + + +---------+ + + | (unknown) | (no date) | (unknown) | [facility] | (no | (units | (unknown) | | | | | [facility] | value) | unknown) | | | | | [facility] | | | | + + + + +---------+ + + + + | Result panel 86 | + + + + + + +---------+ + + | (unknown) | (no date) | (unknown) | [facility] | (no | (units | (unknown) | | | | | [facility] | value) | unknown) | | | | | [facility] | | | | + + + + +---------+ + + + + | Result panel 87 | + + + + + + +---------+ + + | (unknown) | (no date) | (unknown) | [facility] | (no | (units | (unknown) | | | | [facility] | value) | unknown) | | | | | [facility] | | | | + + + + +---------+ + + + + | Result panel 88 | + + + + + + +---------+ + + | (unknown) | (no date) | (unknown) | [facility] | (no | (units | (unknown) | | | | | [facility] | value) | unknown) | | | | | [facility] | | | | + + + + +---------+ + + + + | Result panel 89 | + + + + + + +---------+ + + | (unknown) | (no date) | (unknown) | [facility] | (no | (units | (unknown) | | | | [facility] | value) | unknown) | | | | | [facility] | | | | + + + + +---------+ + + + + | Result panel 90 | + + + + + + +---------+ + + | (unknown) | (no date) | (unknown) | [facility] | (no | (units | (unknown) | | | | | [facility] | value) | unknown) | | | | | [facility] | | | | + + + + +---------+ + + + + | Result panel 91 | + + + + + + +---------+ + + | (unknown) | (no date) | (unknown) | [facility] | (no | (units | (unknown) | | | | | [facility] | value) | unknown) | | | | | [facility] | | | | + + + + +---------+ + + + + | Result panel 92 | + + + + + + +---------+ + + | (unknown) | (no date) | (unknown) | [facility] | (no | (units | (unknown) | | | | [facility] | value) | unknown) | | | | | [facility] | | | | + + + + +---------+ + + + + | Result panel 93 | + + + + + + +---------+ + + | (unknown) | (no date) | (unknown) | [facility] | (no | (units | (unknown) | | | | [facility] | value) | unknown) | | | | | [facility] | | | | + + + + +---------+ + + + + | Result panel 94 | + + + + + + +---------+ + + | (unknown) | (no date) | (unknown) | [facility] | (no | (units | (unknown) | | | | [facility] | value) | unknown) | | [facility] | [facility] | | | | + + + + +---------+ + + + + | Result panel 95 | + + + + + + +---------+ + + | (unknown) | (no date) | (unknown) | [facility] | (no | (units | (unknown) | | | | | [facility] | value) | unknown) | | | | | [facility] | | | | + + + + +---------+ + + + + | Result panel 96 | + + + + + + +---------+ + + | (unknown) | (no date) | (unknown) | [facility] | (no | (units | (unknown) | | | | | [facility] | value) | unknown) | | | | | [facility] | | | | + + + + +---------+ + + + + | Result panel 97 | + + + + + + +---------+ + + | (unknown) | (no date) | (unknown) | [facility] | (no | (units | (unknown) | | | | [facility] | value) | unknown) | | | | | [facility] | | | | + + + + +---------+ + + + + | Result panel 98 | + + + + + + +---------+ + + | (unknown) | (no date) | (unknown) | [facility] | (no | (units | (unknown) | | | | [facility] | value) | unknown) | | [facility] | [facility] | | | | + + + + +---------+ + + + + | Result panel 99 | + + + + + + +---------+ + + | (unknown) | (no date) | (unknown) | [facility] | (no | (units | (unknown) | | | | [facility] | value) | unknown) | | | | | [facility] | | | | + + + + +---------+ + + + + | Result panel 100 | + + + + + + +---------+ + + | (unknown) | (no date) | (unknown) | [facility] | (no | (units | (unknown) | | | | [facility] | value) | unknown) | | | | | [facility] | | | | + + + + +---------+ + + + + | Result panel 101 | + + + + + + +---------+ + + | (unknown) | (no date) | (unknown) | [facility] | (no | (units | (unknown) | | | | | [facility] | value) | unknown) | | | | | [facility] | | | | + + + + +---------+ + + + + | Result panel 102 | + + + + + + +---------+ + + | (unknown) | (no date) | (unknown) | [facility] | (no | (units | (unknown) | | | | | [facility] | value) | unknown) | | | | | [facility] | | | | + + + + +---------+ + + + + | Result panel 103 | + + + + + + +---------+ + + | (unknown) | (no date) | (unknown) | [facility] | (no | (units | (unknown) | | | | [facility] | value) | unknown) | | | | | [facility] | | | | + + + + +---------+ + + + + | Result panel 104 | + + + + + + +---------+ + + | (unknown) | (no date) | (unknown) | [facility] | (no | (units | (unknown) | | | | [facility] | value) | unknown) | | | | | [facility] | | | | + + + + +---------+ + + + + | Result panel 105 | + + + + + + +---------+ + + | (unknown) | (no date) | (unknown) | [facility] | (no | (units | (unknown) | | | | [facility] | value) | unknown) | | | | | [facility] | | | | + + + + +---------+ + + + + | Result panel 106 | + + + + + + +---------+ + + | (unknown) | (no date) | (unknown) | [facility] | (no | (units | (unknown) | | [facility] | [facility] | value) | unknown) | | | | | [facility] | | | | + + + + +---------+ + + + + | Result panel 107 | + + + + + + +---------+ + + | (unknown) | (no date) | (unknown) | [facility] | (no | (units | (unknown) | | | | [facility] | value) | unknown) | | | | [facility] | | | | + + + + +---------+ + + + + | Result panel 108 | + + + + + + +---------+ + + | (unknown) | (no date) | (unknown) | [facility] | (no | (units | (unknown) | | | | [facility] | value) | unknown) | | | | [facility] | | | | + + + + +---------+ + + + + | Result panel 109 | + + + + + + +---------+ + + | (unknown) | (no date) | (unknown) | [facility] | (no | (units | (unknown) | | | | [facility] | value) | unknown) | | | | | [facility] | | | | + + + + +---------+ + + + + | Result panel 110 | + + + + + + +---------+ + + | (unknown) | (no date) | (unknown) | [facility] | (no | (units | (unknown) | | | | | [facility] | value) | unknown) | | | | | [facility] | | | | + + + + +---------+ + + + + | Result panel 111 | + + + + + + +---------+ + + | (unknown) | (no date) | (unknown) | [facility] | (no | (units | (unknown) | | | | | [facility] | value) | unknown) | | | | | [facility] | | | | + + + + +---------+ + + + + | Result panel 112 | + + + + + + +---------+ + + | (unknown) | (no date) | (unknown) | [facility] | (no | (units | (unknown) | | | | [facility] | value) | unknown) | | | | | [facility] | | | | + + + + +---------+ + + + + | Result panel 113 | + + + + + + +---------+ + + | (unknown) | (no date) | (unknown) | [facility] | (no | (units | (unknown) | | | | [facility] | value) | unknown) | | | | | [facility] | | | | + + + + +---------+ + + + + | Result panel 114 | + + + + + + +---------+ + + | (unknown) | (no date) | (unknown) | [facility] | (no | (units | (unknown) | | | | [facility] value) | unknown) | | | | [facility] | | | | + + + + +---------+ + + Social History No information. Vital Signs + + + +---------+ | date | measurement | value | units | + + + +---------+ | 2022-10-16 00:00 | BMI | 28.3 | kg/m2 | + + + +---------+ | 2022-10-16 00:00 | BP_diastolic | 95 | mmHg | + + + +---------+ | 2022-10-16 00:00 | BP_systolic | 136 | mmHg | + + + +---------+ | 2022-10-16 00:00 | heart_rate | 87 | /min | + + + +---------+ | 2022-10-16 00:00 | height_metric | 154.94 | cm | + + + +---------+ | 2022-10-16 00:00 | height_standard | 61 | in | + + + +---------+ | 2022-10-16 00:00 | o2_saturation | 96 | % | + + + +---------+ | 2022-10-16 00:00 | respiration_rate | 16 | /min | + + + +---------+ | 2022-10-16 00:00 | temperature_metric | 36.67 | C | | | | | | + + + +---------+ | 2022-10-16 00:00 | | 98 | F | | | temperature_standar | | | | | d | | | + + + +---------+ | 2022-10-16 00:00 | weight_metric | 67.9 | kg | + + + +---------+ | 2022-10-16 00:00 | weight_standard | 149.69 | lb | + + + +---------+ | 2022-11-25 00:00 | BMI | 28.3 | kg/m2 | + + + +---------+ | 2022-11-25 00:00 | BP_diastolic | 94 | mmHg | + + + +---------+ | 2022-11-25 00:00 | BP_diastolic | 99 | mmHg | + + + +---------+ | 2022-11-25 00:00 | BP_systolic | 131 | mmHg | + + + +---------+ | 2022-11-25 00:00 | BP_systolic | 144 | mmHg | + + + +---------+ | 2022-11-25 00:00 | heart_rate | 89 | /min | + + + +---------+ | 2022-11-25 00:00 | heart_rate | 92 | /min | + + + +---------+ | 2022-11-25 00:00 | height_metric | 154.94 | cm | + + + +---------+ | 2022-11-25 00:00 | height_standard | 61 | in | + + + +---------+ | 2022-11-25 00:00 | o2_saturation | 100 | % | + + + +---------+ | 2022-11-25 00:00 | respiration_rate | 18 | /min | + + + +---------+ | 2022-11-25 00:00 | temperature_metric | 36.39 | C | | | | | | + + + +---------+ | 2022-11-25 00:00 | | 97.5 | F | | | temperature_standar | | | | | d | | | + + + +---------+ | 2022-11-25 00:00 | weight_metric | 67.9 | kg | + + + +---------+ | 2022-11-25 00:00 | weight_standard | 149.69 | lb | + + + +---------+ | 2022-12-04 00:00 | BMI | 28.3 | kg/m2 | + + + +---------+ | 2022-12-04 00:00 | BP_diastolic | 90 | mmHg | + + + +---------+ | 2022-12-04 00:00 | BP_systolic | 155 | mmHg | + + + +---------+ | 2022-12-04 00:00 | heart_rate | 88 | /min | + + + +---------+ | 2022-12-04 00:00 | height_metric | 154.94 | cm | + + + +---------+ | 2022-12-04 00:00 | height_standard | 61 | in | + + + +---------+ | 2022-12-04 00:00 | o2_saturation | 97 | % | + + + +---------+ | 2022-12-04 00:00 | respiration_rate | 16 | /min | + + + +---------+ | 2022-12-04 00:00 | temperature_metric | 36.83 | C | | | | | | + + + +---------+ | 2022-12-04 00:00 | | 98.3 | F | | | temperature_standar | | | | | d | | | + + + +---------+ | 2022-12-04 00:00 | weight_metric | 67.9 | kg | + + + +---------+ | 2022-12-04 00:00 | weight_standard | 149.69 | lb | + + + +---------+ | 2022-12-19 00:00 | BMI | 28.3 | kg/m2 | + + + +---------+ | 2022-12-19 00:00 | BP_diastolic | 75 | mmHg | + + + +---------+ | 2022-12-19 00:00 | BP_systolic | 132 | mmHg | + + + +---------+ | 2022-12-19 00:00 | heart_rate | 94 | /min | + + + +---------+ | 2022-12-19 00:00 | height_metric | 154.94 | cm | + + + +---------+ | 2022-12-19 00:00 | height_standard | 61 | in | + + + +---------+ | 2022-12-19 00:00 | o2_saturation | 95 | % | + + + +---------+ | 2022-12-19 00:00 | respiration_rate | 18 | /min | + + + +---------+ | 2022-12-19 00:00 | temperature_metric | 36.67 | C | | | | | | + + + +---------+ | 2022-12-19 00:00 | | 98 | F | | | temperature_standar | | | | | d | | | + + + +---------+ | 2022-12-19 00:00 | weight_metric | 67.9 | kg | + + + +---------+ | 2022-12-19 00:00 | weight_standard | 149.69 | lb | + + + +---------+ | 2022-12-21 00:00 | BMI | 28.1 | kg/m2 | + + + +---------+ | 2022-12-21 00:00 | BP_diastolic | 86 | mmHg | + + + +---------+ | 2022-12-21 00:00 | BP_systolic | 124 | mmHg | + + + +---------+ | 2022-12-21 00:00 | heart_rate | 73 | /min | + + + +---------+ | 2022-12-21 00:00 | height_metric | 154.94 | cm | + + + +---------+ | 2022-12-21 00:00 | height_standard | 61 | in | + + + +---------+ | 2022-12-21 00:00 | o2_saturation | 93 | % | + + + +---------+ | 2022-12-21 00:00 | respiration_rate | 16 | /min | + + + +---------+ | 2022-12-21 00:00 | temperature_metric | 36.72 | C | | | | | | + + + +---------+ | 2022-12-21 00:00 | | 98.1 | F | | | temperature_standar | | | | | d | | | + + + +---------+ | 2022-12-21 00:00 | weight_metric | 67.44 | kg | + + + +---------+ | 2022-12-21 00:00 | weight_standard | 148.68 | lb | + + + +---------+ | 2022-12-21 00:00 | weight_standard | 148.69 | lb | + + + +---------+ | 2023-01-13 00:00 | BMI | 27.1 | kg/m2 | + + + +---------+ | 2023-01-13 00:00 | BP_diastolic | 90 | mmHg | + + + +---------+ | 2023-01-13 00:00 | BP_systolic | 146 | mmHg | + + + +---------+ | 2023-01-13 00:00 | heart_rate | 88 | /min | + + + +---------+ | 2023-01-13 00:00 | height_metric | 154.94 | cm | + + + +---------+ | 2023-01-13 00:00 | height_standard | 61 | in | + + + +---------+ | 2023-01-13 00:00 | o2_saturation | 95 | % | + + + +---------+ | 2023-01-13 00:00 | respiration_rate | 24 | /min | + + + +---------+ | 2023-01-13 00:00 | temperature_metric | 36.61 | C | | | | | | + + + +---------+ | 2023-01-13 00:00 | | 97.9 | F | | | temperature_standar | | | | | d | | | + + + +---------+ | 2023-01-13 00:00 | weight_metric | 64.98 | kg | + + + +---------+ | 2023-01-13 00:00 | weight_standard | 143.25 | lb | + + + +---------+ | 2023-01-13 00:00 | weight_standard | 143.26 | lb | + + + +---------+ | 2023-01-16 00:00 | BMI | 26.5 | kg/m2 | + + + +---------+ | 2023-01-16 00:00 | BMI | 26.7 | kg/m2 | + + + +---------+ | 2023-01-16 00:00 | BP_diastolic | 130 | mmHg | + + + +---------+ | 2023-01-16 00:00 | BP_systolic | 157 | mmHg | + + + +---------+ | 2023-01-16 00:00 | heart_rate | 73 | /min | + + + +---------+ | 2023-01-16 00:00 | height_metric | 154.94 | cm | + + + +---------+ | 2023-01-16 00:00 | height_standard | 61 | in | + + + +---------+ | 2023-01-16 00:00 | o2_saturation | 97 | % | + + + +---------+ | 2023-01-16 00:00 | respiration_rate | 18 | /min | + + + +---------+ | 2023-01-16 00:00 | temperature_metric | 36.44 | C | | | | | | + + + +---------+ | 2023-01-16 00:00 | | 97.6 | F | | | temperature_standar | | | | | d | | | + + + +---------+ | 2023-01-16 00:00 | weight_metric | 63.62 | kg | + + + +---------+ | 2023-01-16 00:00 | weight_metric | 64 | kg | + + + +---------+ | 2023-01-16 00:00 | weight_standard | 140.25 | lb | + + + +---------+ | 2023-01-16 00:00 | weight_standard | 140.26 | lb | + + + +---------+ | 2023-01-16 00:00 | weight_standard | 141.1 | lb | + + + +---------+ | 2023-01-22 00:00 | BP_diastolic | 86 | mmHg | + + + +---------+ | 2023-01-22 00:00 | BP_systolic | 159 | mmHg | + + + +---------+ | 2023-01-22 00:00 | heart_rate | 67 | /min | + + + +---------+ | 2023-01-22 00:00 | o2_saturation | 96 | % | + + + +---------+ | 2023-01-22 00:00 | respiration_rate | 20 | /min | + + + +---------+ | 2023-01-22 00:00 | temperature_metric | 36.61 | C | | | | | | + + + +---------+ | 2023-01-22 00:00 | | 97.9 | F | | | temperature_standar | | | | | d | | | + + + +---------+"
--- OUTSIDE RECORDS SUMMARY | ~2023-01-25 | XMS | Continuity of Care Document ---
Demographics + + + | Address | [address] | | | [place] [address] | + + + | Preferred Language | Unknown | + + + | Marital Status | | + + + | Yazidism Affiliation | Unknown | + + + | Race | White | + + + | Ethnic Group | Not or | + + + Author + + + | Author | [facility] | + + + | Organization | [facility] | + + + | Address | [address] | | | [place] [address] | + + + | Phone | | + + + Care Team Providers + + + + | Care Sash Clamp Operator Name | Role | Phone | + [...] | (no date) | Urticaria | [facility] | (unknown) | | | | Hospital | | + + + + + | (no date) | Morphine | [facility] | (unknown) | | | | Hospital | | + + + + + | (no date) | Ibuprofen | [facility] | (unknown) | | | | Hospital | | + + + + + | (no date) | Ibuprofen | [facility] | (unknown) | | | | Hospital | | + + + + + | (no date) | Morphine | [facility] | (unknown) | | | | Hospital | | + + + + + | (no date) | Morphine | [facility] | (unknown) | | | | Hospital | | + + + + + | (no date) | morphine | [facility] | (unknown) | + + + + + | (no date) | ibuprofen | [facility] | (unknown) | + + + + + | (no date) | Ibuprofen | [facility] | (unknown) | | | | Hospital | | + + + + + Encounters No information. Functional Status No information. Immunizations No information. Medications + + + + | date | description | facility | + + + + | 2022-10-16 00:00 | OMEPRAZOLE | [facility] | + + + + | 2022-11-25 00:00 | OMEPRAZOLE | [facility] | + + + + | 2022-12-04 00:00 | OMEPRAZOLE | [facility] | + + + + | 2022-12-19 00:00 | OMEPRAZOLE | [facility] | + + + + | 2022-12-21 00:00 | OMEPRAZOLE | [facility] | + + + + | 2023-01-13 00:00 | OMEPRAZOLE | [facility] | + + + + | 2023-01-16 00:00 | OMEPRAZOLE | [facility] | + + + + | 2023-01-22 00:00 | OMEPRAZOLE | [facility] | + + + + | 2022-11-25 00:00 | ASPIRIN | [facility] | + + + + | 2022-11-25 00:00 | ASPIRIN | [facility] | + + + + | 2023-01-16 00:00 | QUETIAPINE FUMARATE | [facility] | + + + + | 2023-01-21 00:00 | QUETIAPINE FUMARATE | [facility] | + + + + | 2023-01-22 00:00 | QUETIAPINE FUMARATE | [facility] | + + + + | 2023-01-21 00:00 | ACETAMINOPHEN | [facility] | + + + + | 2022-10-16 00:00 | DULOXETINE HCL | [facility] | + + + + | 2022-11-25 00:00 | DULOXETINE HCL | [facility] | + + + + | 2022-12-04 00:00 | DULOXETINE HCL | [facility] | + + + + | 2022-12-19 00:00 | DULOXETINE HCL | [facility] | + + + + | 2022-12-19 00:00 | QUETIAPINE FUMARATE | [facility] | + + + + | 2022-10-16 00:00 | | [facility] | | | SULFAMETHOXAZOLE/TRIMETHOPR | | | | IM DS | | + + + + | 2022-10-16 00:00 | | [facility] | | | SULFAMETHOXAZOLE/TRIMETHOPR | | | | IM DS | | + + + + | 2022-10-16 00:00 | | [facility] | | | SULFAMETHOXAZOLE/TRIMETHOPR | | | | IM DS | | + + + + | 2022-12-19 00:00 | TRAZODONE HCL | [facility] | + + + + | 2022-12-21 00:00 | TRAZODONE HCL | [facility] | + + + + | 2023-01-13 00:00 | TRAZODONE HCL | [facility] | + + + + | 2023-01-16 00:00 | TRAZODONE HCL | [facility] | + + + + | 2023-01-21 00:00 | TRAZODONE HCL | [facility] | + + + + | 2023-01-22 00:00 | TRAZODONE HCL | [facility] | + + + + | 2022-10-16 00:00 | TRAZODONE HCL | [facility] | + + + + | 2022-11-25 00:00 | TRAZODONE HCL | [facility] | + + + + | 2022-12-04 00:00 | TRAZODONE HCL | [facility] | + + + + | 2022-12-19 00:00 | TRAZODONE HCL | [facility] | + + + + | 2022-12-21 00:00 | TRAZODONE HCL | [facility] | + + + + | 2023-01-13 00:00 | TRAZODONE HCL | [facility] | + + + + | 2023-01-16 00:00 | TRAZODONE HCL | [facility] | + + + + | 2023-01-22 00:00 | TRAZODONE HCL | [facility] | + + + + | 2022-12-19 00:00 | BUSPIRONE HCL | [facility] | + + + + | 2022-12-21 00:00 | BUSPIRONE HCL | [facility] | + + + + | 2023-01-13 00:00 | BUSPIRONE HCL | [facility] | + + + + | 2023-01-16 00:00 | BUSPIRONE HCL | [facility] | + + + + | 2023-01-22 00:00 | BUSPIRONE HCL | [facility] | + + + + | 2022-10-16 00:00 | BUSPIRONE HCL | [facility] | + + + + | 2022-11-25 00:00 | BUSPIRONE HCL | [facility] | + + + + | 2022-12-04 00:00 | BUSPIRONE HCL | [facility] | + + + + | 2022-12-19 00:00 | BUSPIRONE HCL | [facility] | + + + + | 2022-12-21 00:00 | BUSPIRONE HCL | [facility] | + + + + | 2023-01-13 00:00 | BUSPIRONE HCL | [facility] | + + + + | 2023-01-16 00:00 | BUSPIRONE HCL | [facility] | + + + + | 2023-01-22 00:00 | BUSPIRONE HCL | [facility] | + + + + | 2023-01-22 00:00 | hydrOXYzine HCL | [facility] | + + + + | 2022-10-16 00:00 | MEMANTINE HCL | [facility] | + + + + | 2022-11-25 00:00 | MEMANTINE HCL | [facility] | + + + + | 2022-12-04 00:00 | MEMANTINE HCL | [facility] | + + + + | 2022-12-19 00:00 | MEMANTINE HCL | [facility] | + + + + Problems + + + + | date | description | facility | + + + + | 2021-10-23 00:00 | Gastritis | [facility] | + + + + | 2021-10-23 00:00 | Gastritis | [facility] | + + + + | 2021-10-23 00:00 | Gastritis | [facility] | + + + + | 2022-01-11 00:00 | Patient left without being | [facility] | | | seen | | + + + + | 2022-01-11 00:00 | Patient left without being | [facility] | | | seen | | + + + + | 2022-01-11 00:00 | Patient left without being | [facility] | | | seen | | + + + + | 2022-01-12 00:00 | Contusion of chest wall | [facility] | + + + + | 2022-01-12 00:00 | Contusion of chest wall | [facility] | + + + + | 2022-01-12 00:00 | Contusion of chest wall | [facility] | + + + + | 2022-10-16 00:00 | Cellulitis | [facility] | + + + + | 2022-10-16 00:00 | Cellulitis | [facility] | + + + + | 2022-10-16 00:00 | Cellulitis | [facility] | + + + + | 2022-10-16 20:09 | NICOTINE DEPENDENCE, | [facility] | | | UNSPECIFIED, UNCOMPLICATED | | + + + + | 2022-10-16 20:09 | CELLULITIS OF LEFT UPPER | [facility] | | | LIMB | | + + + + | 2022-10-16 20:09 | OTHER FIREFIGHTER TYPE ONE (CURRENT) | [facility] | | | DRUG [...] 2022-11-25 00:00 | Nonspecific chest pain | [facility] | + + + + | 2022-11-25 00:00 | Nonspecific chest pain | [facility] | + + + + | 2022-11-25 00:00 | Nonspecific chest pain | [facility] | + + + + | 2022-11-25 15:13 | NICOTINE DEPENDENCE, | [facility] | | | UNSPECIFIED, UNCOMPLICATED | | + + + + | 2022-11-25 15:13 | OTHER CHEST PAIN | [facility] | + + + + | 2022-11-25 15:13 | CHEST PAIN, UNSPECIFIED | [facility] | + + + + | 2022-11-25 15:13 | OTHER CUSTODIAL (CURRENT) | [facility] | | | DRUG THERAPY | | + + + + | 2022-11-25 15:13 | ALLERGY STATUS TO NARCOTIC | [facility] | | | AGENT STATUS | | + + + + | 2022-11-25 15:13 | ALLERGY STATUS TO | [facility] | | | ANALGESIC AGENT STATUS | | + + + + | 2022-12-04 00:00 | Dementia | [facility] | + + + + | 2022-12-04 00:00 | Dementia | [facility] | + + + + | 2022-12-04 [...] + + + | 2022-12-04 18:52 | CUSTODIAL (CURRENT) USE OF | [facility] | | | ASPIRIN | | + + + + | 2022-12-04 18:52 | OTHER FIREFIGHTER TYPE ONE (CURRENT) | [facility] | | | DRUG [...] 00:00 | Agitation due to dementia | [facility] | + + + + | 2022-12-19 00:00 | Agitation due to dementia | [facility] | + + + + | 2022-12-19 [...] + + + | 2022-12-19 20:09 | CUSTODIAL (CURRENT) USE OF | [facility] | | | ASPIRIN | | + + + + | 2022-12-19 20:09 | OTHER FIREFIGHTER TYPE ONE (CURRENT) | [facility] | | | DRUG [...] 00:00 | Sedated due to medication | [facility] | + + + + | 2022-12-21 00:00 | Sedated due to medication | [facility] | + + + + | [...] + + + | 2022-12-21 09:42 | CUSTODIAL (CURRENT) USE OF | [facility] | | | ASPIRIN | | + + + + | 2022-12-21 09:42 | OTHER CUSTODIAL (CURRENT) | [facility] | | | DRUG [...] + + + | 2023-01-13 19:39 | CUSTODIAL (CURRENT) USE OF | [facility] | | | ASPIRIN | | + + + + | 2023-01-13 19:39 | OTHER CUSTODIAL (CURRENT) | [facility] | | | DRUG [...] 2023-01-16 00:00 | Altered mental status | [facility] | + + + + | 2023-01-16 00:00 | Laceration of nose | [facility] | + + + + | 2023-01-16 00:00 | Laceration of nose | [facility] | + + + + | 2023-01-16 04:59 | DEM [facility] | [facility] | | | [...] + + + | 2023-01-16 04:59 | FIREFIGHTER TYPE ONE (CURRENT) USE OF | [facility] | | | ASPIRIN | | + + + + | 2023-01-16 04:59 | OTHER FIREFIGHTER TYPE ONE (CURRENT) | [facility] | | | DRUG [...] + | 2023-01-17 13:46 | DEM [facility] | [facility] | | | [...] + + + | 2023-01-17 13:46 | FIREFIGHTER TYPE ONE (CURRENT) USE OF | [facility] | | | ASPIRIN | | + + + + | 2023-01-17 13:46 | OTHER FIREFIGHTER TYPE ONE (CURRENT) | [facility] | | | DRUG [...]
[~2023-01-25 16:06] MED LIST changes: +HYDROXYZINE HCL25 MG PO; +QUETIAPINE FUM100 MG PO; +TYLENOL325 MG PO
--- OUTSIDE RECORDS SUMMARY | 2023-01-25 16:08 | XMS ---
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 - Patient with suicidal and/or homicidal ideations eloped. - Patient eloped with IV in place. Details: PATIENT LWBS CRITERIA MET - 6 ED Visits in 6 Months - [facility] - 2 Visits in 30 Days CARE PROVIDERS -[place] Dentist: Scuba Diving Teacher [facility] PHONE: [phone] CHERIE MARCELO Physician Dental Equipment Technician Current PHONE: [phone] Sammie has no Care Guidelines for this patient. E.D. VISIT COUNT (12 MO.) [address] [facility] TOTAL 9 NOTE: Visits indicate total known visits. ED/UCC VISIT TRACKING (12 MO.) 01/25/2023 16:07 [facility] [place] TYPE: Emergency COMPLAINT: - ALTERED MENTAL STATUS 01/16/2023 12:12 [facility] TYPE: Emergency COMPLAINT: - GLF, AMS 01/16/2023 04:59 [facility] TYPE: Emergency COMPLAINT: - FACIAL LACERATION DIAGNOSES: - Allergy status to analgesic agent - Allergy status to narcotic agent - Alzheimer's disease, unspecified - Dementia in other diseases classified elsewhere, unspecified severity, without behavioral disturbance, psychotic disturbance, mood disturbance, and anxiety - Fall on same level, unspecified, initial encounter - Laceration without foreign body of nose, initial encounter - MCC (current) use of aspirin - Nicotine dependence, unspecified, uncomplicated - Other snf (current) drug therapy 01/13/2023 19:39 [facility] TYPE: Emergency COMPLAINT: - SELF HARM DIAGNOSES: - Allergy status to analgesic agent - Allergy status to narcotic agent - Laceration without foreign body of left elbow, initial encounter - Laceration without foreign body of left forearm, initial encounter - extermination supervisor (current) use of aspirin - Nicotine dependence, unspecified, uncomplicated - Other exterminator (current) drug therapy - Unspecified dementia, unspecified severity, without behavioral disturbance, psychotic disturbance, mood disturbance, and anxiety 12/21/2022 09:42 [facility] TYPE: Emergency COMPLAINT: - ALTERED LOC DIAGNOSES: - Allergy status to analgesic agent - Allergy status to narcotic agent - Alzheimer's disease, unspecified - Dementia in other diseases classified elsewhere, unspecified severity, without behavioral disturbance, psychotic disturbance, mood disturbance, and anxiety - MCC (current) use of aspirin - Nicotine dependence, unspecified, uncomplicated - Other snf (current) drug therapy - Poisoning by benzodiazepines, accidental (unintentional), initial encounter - Somnolence 12/19/2022 20:09 [facility] TYPE: Emergency COMPLAINT: - ALTERED MENTAL STATUS DIAGNOSES: - Allergy status to analgesic agent - Allergy status to narcotic agent - extermination supervisor (current) use of aspirin - Nicotine dependence, unspecified, uncomplicated - Other snf (current) drug therapy - Restlessness and agitation - Transient alteration of awareness - Unspecified dementia, unspecified severity, with agitation 12/04/2022 18:52 [facility] TYPE: Emergency COMPLAINT: - HEAD INJURY DIAGNOSES: - Allergy status to analgesic agent - Allergy status to narcotic agent - Contusion of other part of head, initial encounter - Headache, unspecified - MCC (current) use of aspirin - Nicotine dependence, unspecified, uncomplicated - Other snf (current) drug therapy - Striking against other [...] uncomplicated - Other chest pain - Other snf (current) drug therapy 10/16/2022 20:09 [facility] TYPE: Emergency COMPLAINT: - SKIN ISSUE DIAGNOSES: - Allergy status to narcotic agent - Allergy status to other drugs, medicaments and biological substances - Cellulitis of left upper limb - Nicotine dependence, unspecified, uncomplicated - Other exterminator (current) drug therapy INPATIENT VISIT TRACKING (12 MO.) 01/17/2023 13:46 [facility] TYPE: Medical Surgical COMPLAINT: - FALLS, POSSIBLE SUBACUTE STROKE DIAGNOSES: - Allergy status to analgesic agent - Allergy status to analgesic agent - Allergy status to narcotic agent - Allergy status to narcotic agent - Allergy status to other drugs, medicaments and biological substances - Alzheimer's disease, unspecified - Alzheimer's disease, unspecified - Contusion of eyeball and orbital tissues, left eye, initial encounter - Contusion of eyeball and orbital tissues, left eye, initial encounter - Contusion of eyeball and orbital tissues, right eye, initial encounter - Contusion of eyeball and orbital tissues, right eye, initial encounter - Contusion of eyeball and orbital tissues, unspecified eye, subsequent encounter - Dementia in other diseases classified elsewhere, unspecified severity, with other behavioral disturbance - Dementia in other diseases classified elsewhere, unspecified severity, with other behavioral disturbance - Disorientation, unspecified - Fracture of nasal bones, initial encounter for closed fracture - Fracture of nasal bones, initial encounter for closed fracture - Fracture of nasal bones, subsequent encounter for fracture with routine healing - History of falling - History of falling - Hypokalemia - Hypokalemia - extermination supervisor (current) use of aspirin - MCC (current) use of aspirin - Other fall on same level, initial encounter - Other fall on same level, initial encounter - Other snf (current) drug therapy - Other exterminator (current) drug therapy - Other specified postprocedural states - Other specified postprocedural states - Personal history of nicotine dependence - Personal history of nicotine dependence - Repeated falls - Repeated falls - Unspecified place in unspecified non-institutional (private) residence as the place of occurrence of the external cause - Unspecified place in unspecified non-institutional (private) residence as the place of occurrence of the external cause [email or web address]
[2023-01-25] MEDS ORDERED: OLANZAPINE5 MG PO (17:12)
[2023-01-25] MEDS ORDERED: MACROBID 100 M100 MG PO (21:38)
[2023-01-25] MEDS ORDERED: ZYPREXA5 MG PO (21:38)
--- NOTE | 2023-01-26 09:28 | NUR ---
LOCKSTITCH BINDER ASSISTED PT UP TO THE BEDSIDE COMMODE. PT AMBULATED WITH TWO PERSON ASSIST. BRIEF CHANGE AND ALVA CARE PROVIDED. PT ASSISTED BACK TO BED WITH TWO PERSON ASSIST. LOCKSTITCH BINDER ASSISTED FEEDING THE PT BREAKFAST. PT REFUSED ANY MORE FOOD BY PUSHING FOOD AWAY WHEN OFFERED. CALL LIGHT WITHIN REACH. NO OTHER NEEDS AT THIS TIME.
--- NOTE | 2023-01-26 10:35 | NUR ---
REGISTER OF WILLS ENTERED PT ROOM BECAUSE PT APPEARED TO BE RESTLESS. PT STATED, "I NEED TO GO TO THE BATHROOM." REGISTER OF WILLS ASSISTED PT ONTO THE BEDSIDE COMMODE WITH ONE PERSON ASSIST. PT VOIDED 600 ML. ALVA CARE PERFORMED. PT ASSISTED TO BED WITH TWO PERSON ASSIST. CALL LIGHT WITHIN REACH.
--- NOTE | 2023-01-26 12:45 | NUR ---
SURGICAL GARMENT FITTER ASSISTED PT WITH EATING LUNCH. SURGICAL GARMENT FITTER UTILIZED THE HAND UNDER HAND TECHNIQUE FOR EATING AND THE PT TOLERATED IT WELL. PT ATE 50% OF MEAL. PT REFUSED EATING ANY MORE BY PUSHING FOOD AWAY WHEN OFFERED. CALL LIGHT WITHIN REACH. NO OTHER NEEDS AT THIS TIME.
--- NOTE | 2023-01-26 15:27 | NUR ---
PT ASSISTED TO THE BEDSIDE COMMODE WITH ONE PERSON ASSIST AND FRONT WHEEL WALKER. PT VOIDED 300 ML. PT ASSISTED BACK INTO BED. PT IS RESTLESS AND AGITATED. CORRECTIONAL NURSE ATTEMPTED TO CONSOLE PT BY OFFERING JELLO AND FLUIDS. INTERVENTIONS WERE UNSUCCESSFUL. WILL CONTINUE TO MONITOR.
--- NOTE | 2023-01-26 17:21 | NUR ---
CATTLE DIPPER ATTEMPTED TO CONSOLE PT WITH MULTIPLE FAILED ATTEMPTS. PT REFUSED TO EAT MEAL. PT CONTINUES TO TRY TO CRAWL OUT OF BED. PT IS CONFUSED AND AGITATED. WILL CONTINUE TO MONITOR AND ENSURE PT SAFETY. CATTLE DIPPER IN PT ROOM.
--- NOTE | 2023-01-26 17:51 | NUR ---
MAKE READY MECHANIC ASKED THE OTHER MAKE READY MECHANIC ON THE FLOOR TO ASSIST PT WITH EATING DINNER AFTER MULTIPLE FAILED ATTEMPTS TO EAT. THE SECOND MAKE READY MECHANIC WAS SUCCESSFUL GETTING THE PT TO EAT DINNER. PT ATE 50% OF DINNER. CALL LIGHT WITHIN REACH. NO OTHER NEEDS AT THIS TIME.
--- NOTE | 2023-01-28 17:22 | NUR ---
STEAM POWER PLANT OPERATOR ATTEMPTED TO HELP PT EAT DINNER WITH MULTIPLE ATTEMPTS. PT REFUSED ALL OF THE FOOD OPTIONS GIVEN TO HER. PT TOLERATED A FEW SIPS OF ORANGE JUICE AND WATER. PT STATED, "I DO NOT WANT ANY MORE." WILL CONTINUE TO OFFER FOOD WHEN PT IS MORE AWAKE.
--- NOTE | 2023-01-28 17:57 | NUR ---
PT APPEARED RESTLESS AND AGITATED WHILE LAYING IN BED. PT STATED, " I HAVE TO GO TO THE BATHROOM." LAY OUT HELPER ASSISTED PT TO THE BEDSIDE COMMODE. PT DID NOT VOID OR HAVE A BOWEL MOVEMENT. PT BEGAN TO GET AGITATED AND WAS VERY UNSTABLE WHILE TRYING TO AMBULATE. LAY OUT HELPER ASSISTED PT BACK TO BED. PT IS STILL RESTLESS. WILL CONTINUE TO MONITOR.
--- NOTE | 2023-01-31 14:51 | NUR ---
Spoke with Kitty from [facility]. She received a chart for this pt. She requires further paperwork and will fax to our department. She will review and let us know if this pt can be accepted to their program. She does state they accept dementia pts. Somehow the chart was sent directly to [facility] and it needs to be reviewed by Kitty's team.
--- NOTE | 2023-02-11 15:13 | NUR ---
PLANT BREEDER ENTERED ROOM BECAUSE PT APPEARED RESTLESS. PT STATED, "I NEED TO PEE." PLANT BREEDER ASSISTED PT TO THE BEDSIDE COMMODE. PT URINATED FOR 200 ML. PT REQUIRED TWO PERSON ASSISTED WITH PUTTING ON NEW BRIEF AND PJ PANTS. ALVA CARE PERFORMED. PT ASSISTED BACK TO BED. WILL CONITNUE TO MONITOR.
--- NOTE | 2023-02-11 16:19 | NUR ---
PT APPEARED RESTLESS SO NETWORK SUPPORT ANALYST OFFERED TO TAKE THE PT ON A WALK. NETWORK SUPPORT ANALYST TOOK PT IN WHEEL CHAIR AROUND HOSPITAL. PT TOLERATED IT WELL. PT RETURNED TO ROOM AND ATE A FEW BITES OF PUDDING. PT STATED, "I AM TIRED." NETWORK SUPPORT ANALYST ASSISTED PT BACK TO BED. WILL CONINUE TO MONITOR.
[2023-02-21 08:30] VITALS: BP 105/75
== END 2023-02-21 08:33 | disposition home or self-care (01) ==
LOC: ED 16:06
DX: G30.9 Alzheimer's disease, unspecified (principal); F02.811 Dementia in other diseases classified elsewhere, unspecified severity, with agitation; F17.200 Nicotine dependence, unspecified, uncomplicated; Z88.8 Allergy status to other drugs, medicaments and biological substances; Z88.5 Allergy status to narcotic agent; Z79.899 Other long term (current) drug therapy
CPT/HCPCS: 36415; 51701; 80048; 80053; 81001; 85025; 87088; 97162; 99285 25; A9270; A9270-GY; J1200; J1630; J1790; J2060; J7030; J7040; U0002